=== PATIENT | male | born 1985 | race Native Hawaiian/Other Pacific Islander ===

== ENCOUNTER → 2018-01-18 11:29 | Outpatient (CLI) | payer BC, SELFPAY ==
--- NOTE | 2018-01-18 | DI.RAD.S_ITS ---
PROCEDURE: XR KNEE RT 3V INDICATIONS: RIGHT KNEE PAIN TECHNIQUE: 3 views of the knee were acquired. COMPARISON: None. FINDINGS: Bones: No fractures or dislocations. No suspicious bony lesions. Soft tissues: No joint effusion. No suspicious soft tissue calcifications. IMPRESSION: Normal knee Dictated by: Kevin Carcamo M.D. on 01/18/2018 at 12:17 Approved by: Kevin Carcamo M.D. on 01/18/2018 at 12:17
== END ==
PROVIDERS: Family Provider Family Medicine; PCP Family Medicine; Visit Provider Specialist
DX: M25.561 Pain in right knee (principal)
CPT/HCPCS: 73562

== ENCOUNTER → 2021-03-02 10:41 | Outpatient (CLI) | payer BC, SELFPAY ==
--- NOTE | 2021-03-02 11:51 | DI.US.S_ITS ---
PROCEDURE: US SCROTUM INDICATIONS: L testicular swelling, dull pain x4 weeks TECHNIQUE: Real-time scanning was performed of the scrotum and testicles, with image documentation. Color and pulse Doppler interrogation was performed of both testicles. COMPARISON: None. FINDINGS: Right: Testicle is normal in size at 4.4 x 2.2 x 2.6 cm, and homogenous in echotexture. Epididymis is normal in overall size and morphology. No hydrocele or varicoceles. Overlying scrotal skin is normal in thickness. Left: Testicle is enlarged measuring 6.8 x 3.9 x 5.8 cm, and heterogeneous in echotexture. There is a 3.7 x 1.4 x 4.0 centimeter solid mass with internal vascularity in the left testicle. Epididymis is normal in overall size and morphology. No hydrocele or varicoceles. Overlying scrotal skin is normal in thickness. Doppler: Color and pulse Doppler demonstrate normal and symmetric arterial flow in both testicles. IMPRESSION: 1. 3.7 x 1.4 x 4.0 centimeter left testicular mass highly suspicious for neoplastic process. Recommend urology consultation. 2. Right testicle is sonographically normal. Dictated by: Connie Knott MD, PhD on 03/02/2021 at 12:23 Approved by: Connie Knott MD, PhD on 03/02/2021 at 12:25
== END ==
PROVIDERS: PCP Nurse Practitioner Family; Referring Provider Physician Assistant; Visit Provider Physician Assistant
DX: N50.89 Other specified disorders of the male genital organs (principal)
CPT/HCPCS: 36415; 76870; 80053; 82105; 83615; 84702; 85025

== ENCOUNTER → 2021-03-02 16:01 | Outpatient (CLI) | payer BC, SELFPAY ==
[2021-03-02 16:35] LABS: Add Manual Diff / Slide Review NO; Basophils Absolute Auto 100 /uL (0-100); Basophils Percent Auto 1.1 % (0-2); Eosinophils Absolute Auto 100 /uL (0-450); Eosinophils Percent Auto 1.2 % (2-4); Hemoglobin 14.4 g/dL (13.5-17.5); Lymphocytes Absolute Auto 2700 /uL (1100-4500); Lymphocytes Percent Auto 31.3 % (25-40); Mean Corpuscular HGB Conc 33.6 % (30-36); Mean Corpuscular Hemoglobin 28.6 PG (26-34); Mean Corpuscular Volume 85.1 fL (80-100); Monocytes Absolute Auto 1100 /uL (0-900); Monocytes Percent Auto 12.5 % (3-14); Neutrophils Absolute Auto 4700 /uL (1500-7000); Neutrophils Percent Auto 53.9 % (50-75); Platelet Count 339 X10^3/uL (150-400); Red Blood Cell Count 5.05 X10^6/uL (4.5-5.9); White Blood Cell Count 8.8 X10^3/uL (4.5-11.0)
[2021-03-02 16:59] LABS: Alanine Aminotransferase 45 IU/L (<50); Albumin 4.8 g/dL (3.5-5.0); Albumin Globulin Ratio 1.3 (1.0-2.8); Alkaline Phosphatase 77 U/L (38-126); Aspartate Aminotransferase 38 IU/L (17-59); BUN Creatinine Ratio 14.5 (6-22); Bilirubin Total 0.3 mg/dL (0.2-1.3); Blood Urea Nitrogen 11 mg/dL (9-20); Calcium 9.5 mg/dL (8.4-10.2); Carbon Dioxide 28 mmol/L (22-32); Chloride 104 mmol/L (98-107); Estimated Glomerular Filt Rate > 60.0 mL/min (>60); Globulin 3.6 g/dL (1.7-4.1); Glucose 123 mg/dL (70-100); HEMOLYSIS < 15 (0-50); Lactate Dehydrogenase 555 U/L (313-618); Potassium 3.7 mmol/L (3.4-5.1); Sodium 141 mmol/L (137-145); Total Protein 8.4 g/dL (6.3-8.2)
[2021-03-02 17:16] LABS: HCG Quantitative /Beta subunit 31.8 mIU/mL (-2.40)
[2021-03-03 09:34] LABS: Alpha Fetoprotein 1.4 ng/mL (0.0-8.3)
== END ==
PROVIDERS: PCP Nurse Practitioner Family; Referring Provider Nurse Practitioner Family; Visit Provider Nurse Practitioner Family
DX: N50.89 Other specified disorders of the male genital organs (principal)
CPT/HCPCS: 36415; 80053; 82105; 83615; 84702; 85025

== ENCOUNTER → 2021-03-08 15:47 | Outpatient (CLI) | payer BC, SELFPAY | PROVIDERS: PCP Nurse Practitioner Family; Referring Provider Specialist; Visit Provider Specialist | DX: N45.1 Epididymitis (principal); N50.89 Other specified disorders of the male genital organs | CPT/HCPCS: 36415; 81002; 84702 ==

== ENCOUNTER → 2021-03-11 08:14 | Outpatient (CLI) | payer BC, SELFPAY ==
[2021-03-11 11:54] LABS: COVID19 -Nasal RAPID Negative (Negative)
== END ==
PROVIDERS: PCP Nurse Practitioner Family; Visit Provider Specialist
DX: Z20.822 Contact with and (suspected) exposure to COVID-19 (principal)
CPT/HCPCS: 87635

== ENCOUNTER → 2021-03-11 11:36 | Outpatient (CLI) | payer BC, SELFPAY ==
--- NOTE | 2021-03-11 11:38 | DI.CT.S_ITS ---
PROCEDURE: CT CHEST ABD PEL W CON INDICATIONS: left testicular mass TECHNIQUE: After the administration of oral and intravenous contrast, axial sections acquired from the supraclavicular neck to the pubic symphysis. Coronal and sagittal reformats were performed. For radiation dose reduction, the following was used: automated exposure control, adjustment of mA and/or kV according to patient size. COMPARISON: None. FINDINGS: CHEST: Lungs: 2 mm nodule seen in the right fissure on image 117/3, indeterminate. Pleura: No pleural effusions or pneumothorax. Heart: Heart size is normal. No pericardial effusion. Chest nodes: Normal. Thyroid gland: Negative. Aorta: Normal in size. Pulmonary arteries: Normal. Esophagus: Normal. ABDOMEN: Liver: Normal. Gallbladder: Negative. Bile ducts: Normal. Pancreas: Normal. Spleen: Normal. Adrenals: Normal. Kidneys and ureters: Normal. Stomach and duodenum: Normal. Bowel: Colonic diverticulosis is seen without evidence of acute complication. Other: No free fluid or air. Abdominal nodes: Multiple enlarged retroperitoneal lymph nodes, for example left periaortic lymph node on image 86/2 measures 2.0 x 1.5 cm. Confluent periaortic lymphadenopathy on image 78/2 measures 5.3 x 3.4 cm. Aorta and IVC: Normal in size. Ventral wall: Normal. PELVIS: Bladder: Normal. There is enlarged soft tissue mass involving the left scrotum presumably reflective of the patient's given left testicular mass. Inguinal region: No hernia. Pelvic nodes: Normal. Bones: No suspicious bony lesions. No vertebral body compression fractures. IMPRESSION: Multiple enlarged retroperitoneal lymph nodes as above, highly suspicious for metastatic disease. 2 mm nodule in the right fissure, technically indeterminate and recommend attention on subsequent studies. Enlarged soft tissue mass within the left scrotum. Dictated by: Hever Johnson M.D. on 03/11/2021 at 13:14 Approved by: Hever Johnson M.D. on 03/11/2021 at 13:21
== END ==
PROVIDERS: PCP Nurse Practitioner Family; Referring Provider Specialist; Visit Provider Specialist
DX: N50.89 Other specified disorders of the male genital organs (principal); N45.1 Epididymitis; R59.0 Localized enlarged lymph nodes; Z20.822 Contact with and (suspected) exposure to COVID-19
CPT/HCPCS: 71260; 74177; 87635; Q9967

== ENCOUNTER 2021-03-14 08:55 | Day surgery (SDC) | payer BC, SELFPAY ==
[2021-03-10 10:36] VITALS: BMI 42.7
[2021-03-14] VITALS (7 sets, daily range): BP systolic 123–136; BP diastolic 68–84; PULSE 71–96; RESP 13–18; TEMP 36.1–36.9; O2SAT 85–100; BMI 42.7
--- NOTE | 2021-03-14 | PATH_ITS ---
[facility] Accession Number: [id number] . 01 Material submitted: . testis - LEFT TESTICAL AND CORD . 01 Clinical history: . LEFT RADICAL ORCHIECTOMY . 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 Please see CAP Summary data below. . CAP Case Summary: (TESTIS: Radical Orchiectomy) Clincal: Pre-Orchiectomy serum tumor markers: Beta subunit of human chorionic gonadotropin elevation. Serum tumor markers: S1. . Specimen: Specimen laterality: Left. Tumor focality: Unifocal. Tumor size: Greatest dimension 6.5 cm. 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 Tumor extent: Limited to testis. Lymphovascular invasion: Positive for lymphovascular invasion. Margin status: All margins negative for tumor. Regional lymph node status: Not applicable (no regional lymph nodes submitted or found). Distant metastasis: Not applicable. . Pathologic stage classification (pTNM, AJCC 8th Edition): pT category: pT2: Tumor limited to testis with lymphovascular invasion. pN category: pN not assigned (no nodes submitted or found). . [facility] 03/18/2021 1317 Local . 02 Comment: As part of routine vice president quality improvement, Dr. Hill also reviewed this case and agrees with the interpretation. Dr. Hansen discussed preliminary results with Dr. Hay on 03/17/2021. . 02 Electronically signed: . Briseida Hansen MD, Pathologist NPI- [id number] . 01 Gross description: . The specimen is received in formalin, labeled left testicle and cord and consists of a 153-gram testicle and spermatic cord. The spermatic cord measures 8.0 cm in length by 2.0 cm in diameter and the testicle measures 8.0 x 6.0 x 5.5 cm. The specimen is inked blue and sectioned to reveal a 6.5 x 5.0 x 4.5 cm miranda-pink, focally hemorrhagic and necrotic mass which abuts the tunica albuginea and does not involve the tunica vaginalis. The mass does not involve the rete testis or epididymis. The epididymis measures 5.5 x 1.0 x 0.5 cm. Machine I Cutter sections are submitted. . A1: Spermatic cord margin, en face. A2: Machine I Cutter cross-sections of spermatic cord. A3: Mass in relation to tunica vaginalis, epididymis, and rete testis. A4-A7: Machine I Cutter mass. (EA:[id number]) /MRV 03/15/2021 1113 Local . 02 Microscopic: . Immunohistochemical stains were performed to characterize the cells of interest. All control stains showed appropriate reactivity. . CD30 - Positive in the high-grade tumor cells. CD117 - Negative in the high-grade tumor cells. Glypican 3 - Negative in tumor cells. D240 - Highlights lymphatic spaces containing tumor cells. . Interpretation: The immunophenotype of CD30 positive, CD117 negative cells is compatible with embryonal carcinoma. The seminomatous component is CD30 negative and CD117 positive. . * This test was developed and its performance characteristics determined by [facility]. It has not been cleared or approved by the U.S. Food and Drug Administration. The FDA has determined that such clearance or approval is not necessary. This test is used for clinical purposes. It should not be regarded as investigational or for research. . 02 Pathologist provided ICD-10: C62.92 . 02 CPT . 879876, M69994, [id number] Performed at: 01 [facility] [address], [place], [place] [id number] MD John Sanchez MD Phone: [phone] Performed at: 02 [facility] [place] [address] [place], [place] [id number] MD Briseida Hansen MD Phone: [phone]
[2021-03-14] MEDS: LACTATED RINGERS 1,000 ML 42 ML IV ×2 (09:17→12:08)
--- NOTE | 2021-03-14 10:33 | PM.PREOP ---
Pre-operative Note Interval Note History & Physical reviewed/Exam performed by Physician: Yes Changes to H&P: No
[2021-03-14] MEDS: ACETAMINOPHEN IV 1,000 MG/100 ML VIAL 400 MG IV (11:04)
[2021-03-14] MEDS: CEFAZOLIN 3 GM IN 0.9 % NACL 100 ML IV (11:15)
--- NOTE | 2021-03-14 11:52 | SUR.OPER ---
Supine on padded OR bed, head on pillow, arms secured on padded arm boards at <90 degrees abduction, legs uncrossed, safety belt at thigh, tape over blanket over lower legs.
[2021-03-14] MEDS: BUPIVACAINE LIPOSOME 266 MG/20 ML VIAL INJ (12:08)
[2021-03-14] MEDS: BUPIVACAINE 0.5% (PF) VIAL 30 ML INJ (12:10)
--- NOTE | 2021-03-14 13:26 | P.OP_ITS ---
Operative Date/Time/Diagnoses Date of procedure: 03/14/21 Time of procedure: 13:26 Pre-op diagnosis: Left testicular neoplasm Post-op diagnosis: same Procedure & Clinicians Procedure: 1. Left radical orchiectomy-complex modifier indicated for this case due to high patient BMI extending length the case greater than 50%. Same procedure as scheduled: Yes Indications: 1. Left testicular neoplasm. Surgeon: Lauri Hay Click Yes if Unassisted: Yes Anesthesia Type: General and Local (1.33% Exparel) Operative Notes Findings: Left cord visibly and palpably normal. The contents within the left tunica vaginalis or hard and the epididymis was not palpably discernible from the neoplastic testis. Closure Type: primary Specimen(s): none sent (Left testicle and cord) Estimated Blood Loss (mL): 10 Blood products transfused: none Procedure in detail: The patient was positioned supine and was administered general anesthesia. The lower abdomen, groin, and genitalia were then prepped and draped in sterile fashion. 0.25% Marcaine anesthetic was then used to infiltrate the skin and subcutaneous tissue over the left inguinal canal. Incision was then made and division of the abundant subcutaneous fat and Jax's fascia layer was undertaken using blunt and cautery technique. The rectus fascia was encountered and was incised parallel to its fibers opening the external ring. Using blunt technique, the cord was then mobilized from the left inguinal canal to level of the internal ring. The cord was then divided into 2 bundles and crossclamped proximally and distally. Cord was then transected distal to these hemostatic clamps. 0 silk suture was then used as a free tie on each bundle. Two 0 silk suture ligature was then applied to each bundle a circumferential and double fashion. The cord proximal to this at the internal ring was infiltrated with Exparel diluted 50%. Next, further mobilization of the cord distally and opening further the soft tissue of the external ring was accomplished. The left testis and cord were then delivered into the operative field in the left inguinal canal. The gubernacular was divided using blunt and cautery technique. The specimen was then handed off the field and submitted for routine gross and microscopic examination. The external oblique fascia was then closed using running 2-0 PDS the ileal inguinal nerve that had been identified begin the case was infiltrated with the local anesthetic as well. The rectus fascia was anesthetized with Exparel. Next Jax's fascia was closed using running 2-0 Monocryl again Jax's fascia was infiltrated with local anesthetic. Now the skin was reapproximated with a running subcuticular technique of 4-0 Monocryl the skin edges and regional block lateral to the incision was then performed with the remainder of the diluted Exparel. The skin surface was then cleaned and dried. A segment of Telfa gauze was then tailored appropriately to cover the incision and over this a large Op site was applied for a Bioclusive finish. Dry sterile fluffs were then applied to the left hemiscrotum and the patient was fitted with a large and leg supporter. The patient was then awakened, transferred to [facility], and transported to the recovery room in stable condition. Post-operative Condition: stable Disposition: PACU Plan for aftercare: Discharge home
== END 2021-03-14 14:12 | disposition home or self-care (01) ==
PROVIDERS: PCP Nurse Practitioner Family; Referring Provider Specialist; Visit Provider Specialist
PROC: (CPT 54530; principal; 2021-03-14 10:45)
DX: C62.92 Malignant neoplasm of left testis, unspecified whether descended or undescended (principal); F32.9 Major depressive disorder, single episode, unspecified
CPT/HCPCS: 54530; 82962; C9290; J0131; J0690; J1100; J2405; J2704; J3010

== ENCOUNTER → 2021-03-22 09:31 | Outpatient (CLI) | payer BC, SELFPAY ==
[2021-03-22 10:18] LABS: BUN Creatinine Ratio 18.2 (6-22); Blood Urea Nitrogen 12 mg/dL (9-20); Calcium 9.3 mg/dL (8.4-10.2); Carbon Dioxide 26 mmol/L (22-32); Chloride 106 mmol/L (98-107); Estimated Glomerular Filt Rate > 60.0 mL/min (>60); Glucose 107 mg/dL (70-100); HEMOLYSIS < 15 (0-50); Potassium 4.4 mmol/L (3.4-5.1); Sodium 141 mmol/L (137-145)
[2021-03-22 10:30] LABS: HCG Quantitative /Beta subunit 14.5 mIU/mL (-2.40)
== END ==
PROVIDERS: PCP Nurse Practitioner Family; Referring Provider Specialist; Visit Provider Specialist
DX: N45.1 Epididymitis (principal); N50.89 Other specified disorders of the male genital organs
CPT/HCPCS: 36415; 80048; 84702

== ENCOUNTER → 2021-03-29 14:01 | Outpatient (CLI) | payer BC, SELFPAY ==
[2021-03-29 15:59] LABS: COVID19 -Nasal RAPID Negative (Negative)
== END ==
PROVIDERS: PCP Nurse Practitioner Family; Visit Provider Specialist
DX: Z20.822 Contact with and (suspected) exposure to COVID-19 (principal); Z01.812 Encounter for preprocedural laboratory examination
CPT/HCPCS: 87635; C9803

== ENCOUNTER 2021-03-30 12:13 | Day surgery (SDC) | payer BC, SELFPAY ==
[2021-03-29 07:22] VITALS: BMI 42.1
[2021-03-30] VITALS (9 sets, daily range): BP systolic 103–126; BP diastolic 55–72; PULSE 79–99; RESP 16–21; TEMP 36.2–37; O2SAT 94–99; BMI 42.1
--- NOTE | 2021-03-30 | DI.RAD.S_ITS ---
PROCEDURE: XR CHEST 1V INDICATIONS: Post left prabhakar catheter placement. TECHNIQUE: One view of the chest was acquired. COMPARISON: None. FINDINGS: Surgical changes and devices: Interval placement of a left prabhakar catheter with tip projecting over the brachiocephalic SVC junction region. Lungs and pleura: Reduced lung volumes with prominence of the bronchovascular markings. No pleural effusions or pneumothorax. Mediastinum: Prominence of the cardiomediastinal silhouette, partially saturated by technique. Bones and chest wall: No suspicious bony lesions. Overlying soft tissues appear unremarkable. IMPRESSION: No appreciable pneumothorax. Dictated by: Silvestre Chatman M.D. on 03/30/2021 at 15:08 Approved by: Silvestre Chatman M.D. on 03/30/2021 at 15:15
[2021-03-30] MEDS: ACETAMINOPHEN 325 MG TABLET 975 MG PO (12:56)
[2021-03-30] MEDS: LACTATED RINGERS 1,000 ML 42 ML IV (12:56)
[2021-03-30] MEDS: GABAPENTIN 300 MG CAPSULE PO (12:57)
[2021-03-30] MEDS: SCOPOLAMINE 1 PATCH TOP (13:03)
--- NOTE | 2021-03-30 13:31 | PM.HP.1 ---
History of Present Illness History of Present Illness Chief complaint: PORT PLACEMENT Narrative: The patient is a gentleman about to start chemotherapy for testicular cancer. I was asked to place a Port-A-Cath. 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) Surgical History History of orchiectomy (03/14/21) Family & Social History Family History Mother Gout Grandfather Bladder cancer Social History: household members spouse Tobacco & Substance use: Smoking Status Never smoker alcohol intake current alcohol intake frequency holiday/special occasion Substance Use Type does not use Meds Home Medications and Allergies Home Medications Medication Instructions Recorded Confirmed Type venlafaxine 150 mg 150 mg PO DAILY 01/14/19 03/30/21 History capsule,extended release 24 hr Allergies Allergy/AdvReac Type Severity Reaction Status Date / Time Sulfa (Sulfonamide Allergy Rash Verified 03/30/21 12:33 Antibiotics) Review of Systems Review of Systems Narrative: Otherwise healthy. No cough asthma chest pain heart problems black or bloody bowel movements. No nodes in the neck or supraclavicular area. Exam Vital Signs (past 8 hours): - 03/30/21 12:35 Temperature 98.6 F Pulse Rate 79 Respiratory Rate 18 Blood Pressure 111/72 Pulse Oximetry 98 Oxygen Delivery Method Room Air Narrative Exam Narrative: Cooperative no apparent distress. There are no nodes in the neck supraclavicular areas. Trachea is midline mobile. Lungs are clear no rales or rhonchi. Heart regular rate and rhythm without murmur gallop. Abdomen is soft protuberant nontender without mass. No rashes on the chest wall. Assessment & Plan Assessment and plan (1) Germ cell tumor of left testicle: Status: Acute Assessment & Plan narrative: Will place a Port-A-Cath. I have discussed the operation with the patient. Risks of bleeding infection lung collapse DVT and pulmonary embolism all discussed with him. All questions were answered. He appears to understand wishes to proceed. Time Spent With Patient Critical Care time: I spent a total of [] minutes of critical care time on this patient's care today; this time is exclusive of procedural time.
--- NOTE | 2021-03-30 13:37 | PM.PREOP ---
Pre-operative Note COVID-19 COVID-19 status: Negative Result date/Date tested (Pos, Neg/Pending): 03/29/21 Interval Note History & Physical reviewed/Exam performed by Physician: Yes Changes to H&P: No
[2021-03-30] MEDS: CEFAZOLIN 1 GM VIAL 3 GM IV (13:50)
--- NOTE | 2021-03-30 14:01 | SUR.OPER ---
Supine on padded OR bed, head on gel donut. arms padded and tucked at sides, legs uncrossed, safety belt at thigh, tape over blanket over lower legs .shoulder roll in place. heels padded with gelpad.
[2021-03-30] MEDS: LIDOCAINE 1% 30 ML INJ (14:16)
[2021-03-30] MEDS: HEPARIN 5,000 UNIT, SODIUM CHLORIDE 0.9% 50 ML IV (14:21)
--- NOTE | 2021-03-30 14:47 | P.OP_ITS ---
Operative Date/Time/Diagnoses Date of procedure: 03/30/21 Time of procedure: 14:48 Pre-op diagnosis: Cancer of the testicle Post-op diagnosis: same Procedure & Clinicians Procedure: Placement of left subclavian Port-A-Cath Same procedure as scheduled: Yes Indications: Need for IV access for chemotherapy Surgeon: Sammy Becerril Click Yes if Unassisted: Yes Anesthesia Type: General Operative Notes Findings: Tip in the proximal SVC. Closure Type: primary Specimen(s): none sent Prosthetic devices, grafts, tissues, transplants, or devices: Regular Port-A-Cath Estimated Blood Loss (mL): 5 Blood products transfused: none Procedure in detail: The patient was placed supine on the operating room table and underwent general LMA anesthesia. A roll was placed between the patient's shoulders. She was prepped and draped in the usual fashion. Local anesthetic was infiltrated beneath the left clavicle in a field block fashion. A transverse incision was made and a pocket created inferior to the incision. I had difficulty actually getting under the clavicle I believe due to his size. However once I did Needle was inserted on 1st attempt into the subclavian vein. A guidewire was passed through it and the needle removed. The guidewire appeared to be in good position initially The port and catheter were put together and the port inserted into the pocket. The catheter was tapered to appropriate length. The wire had displaced into the right subclavian and therefore a manipulated it back into the vena cava. Then the Dilator and introducer were passed over the guidewire. This was done with fluoroscopic visualization. The dilator and guidewire were removed leaving the introducer in place. The catheter was passed through the introducer which was then peeled away. The tip of the catheter was noted to be proximal SVC. There was no evidence of a pneumothorax on fluoroscopy. The port was aspirated and flushed with heparinized saline. The port was secured to the chest wall with interrupt ed 2 0 silk suture. The subcu was closed with interrupted 3 0 Vicryl. The skin was closed with a running 4 0 Vicryl subcuticular stitch, Mastisol and Steri- Strips. Dressing was applied and the patient was taken to the recovery room in good condition. X-ray postprocedure showed the tip in the junction of the non min an SVC and no evidence of pneumothorax. Complications: none Post-operative Condition: stable Disposition: PACU
--- NOTE | 2021-03-30 14:54 | SUR.PHASEI ---
Received to PACU after general anesthesia. Airway patent, self maintained. Report from Dr Uriarte and SOFIA Wright. PCXR done.
--- NOTE | 2021-03-30 15:42 | SUR.PHASEI ---
1507 - Dr Becerril at bedside. Port-a-cath flushed and redressed by Dr Becerril.
== END 2021-03-30 16:01 | disposition home or self-care (01) ==
PROVIDERS: PCP Nurse Practitioner Family; Referring Provider Specialist; Visit Provider Specialist
PROC: (CPT 36561; principal; 2021-03-30 13:15)
DX: C62.92 Malignant neoplasm of left testis, unspecified whether descended or undescended (principal); E66.01 Morbid (severe) obesity due to excess calories; Z68.41 Body mass index [BMI] 40.0-44.9, adult; F41.9 Anxiety disorder, unspecified; F32.9 Major depressive disorder, single episode, unspecified
CPT/HCPCS: 36561; 71045; 76000; C1788; J0690; J1100; J1644; J2250; J2405; J2704

== ENCOUNTER → 2021-04-07 07:05 | Outpatient (CLI) | payer BC, SELFPAY ==
[2021-04-07 07:58] LABS: COVID19 -Nasal RAPID Negative (Negative)
== END ==
PROVIDERS: PCP Nurse Practitioner Family; Referring Provider Internal Medicine; Visit Provider Internal Medicine
DX: Z20.822 Contact with and (suspected) exposure to COVID-19 (principal)
CPT/HCPCS: 87635; C9803

== ENCOUNTER → 2021-04-08 07:01 | Outpatient (CLI) | payer BC, SELFPAY ==
--- NOTE | 2021-04-15 11:17 | PM.PFT.1 ---
Pulmonary Function Test Referral & Results Date Patient Seen: 04/08/21 Requesting provider: Sekou Baez Results: The spirometry demonstrates an FVC of 4.21 L which is 83% of predicted. The FEV1 was measured at 3.73 L which is 90% of predicted. The FEV1/FVC ratio was 89 which is 109% of predicted. Following the administration of bronchodilator there was no significant change. Lung volumes show an SVC of 4.4 L which is 91% of predicted. The diffusing capacity was measured at 32.92 which is 111% of predicted. The maximum voluntary ventilation was reduced Interpretation: This study demonstrates probably normal pulmonary function however maximum voluntary ventilation was reduced which in the absence of any spirometric abnormality suggest the presence of neuromuscular disease Clinical correlation suggested
== END ==
PROVIDERS: PCP Nurse Practitioner Family; Referring Provider Internal Medicine Hematology & Oncology; Visit Provider Internal Medicine Hematology & Oncology
DX: C62.92 Malignant neoplasm of left testis, unspecified whether descended or undescended (principal); J98.8 Other specified respiratory disorders
CPT/HCPCS: 94060; 94726; 94729

== ENCOUNTER 2021-04-11 10:58 | Emergency (ER) | payer BC, SELFPAY ==
[2021-04-11] VITALS (8 sets, daily range): BP systolic 121–130; BP diastolic 60–75; PULSE 77–98; RESP 17–25; TEMP 36.7; O2SAT 93–97; BMI 41.8
--- NOTE | 2021-04-11 11:07 | DI.CT.S_ITS ---
PROCEDURE: CT HEAD/BRAIN WO CON INDICATIONS: synocpe, h/o testicular CA TECHNIQUE: Noncontrast 4.5 mm thick angled axial sections acquired from the foramen magnum to the vertex, with coronal and sagittal reformats. For radiation dose reduction, the following was used: automated exposure control, adjustment of mA and/or kV according to patient size. COMPARISON: None. FINDINGS: Image quality: Excellent. CSF spaces: Basal cisterns are patent. No extra-axial fluid collections. Ventricles are normal in size and shape. Brain: No midline shift. No intracranial masses or hemorrhage. Ayon-white matter interface is normal. Skull and face: Calvarium and visualized facial bones are intact, without suspicious lesions. Sinuses: Visualized sinuses and mastoids are clear. IMPRESSION: No acute intracranial disease process. Dictated by: Connie Knott MD, PhD on 04/11/2021 at 11:37 Approved by: Connie Knott MD, PhD on 04/11/2021 at 11:38
--- NOTE | 2021-04-11 11:08 | DI.RAD.S_ITS ---
PROCEDURE: XR CHEST 1V INDICATIONS: chest pain TECHNIQUE: One view of the chest was acquired. COMPARISON: [facility], CR, XR CHEST 1V, 03/30/2021, 14:48. FINDINGS: Surgical changes and devices: A left chest port is again seen with catheter tip projecting over the confluence of the innominate veins. Lungs and pleura: Lungs are clear. No pleural effusions or pneumothorax. Mediastinum: Mediastinal contours appear normal. Heart size is normal. Bones and chest wall: No suspicious bony lesions. Overlying soft tissues appear unremarkable. IMPRESSION: No acute cardiopulmonary abnormality. Dictated by: Gerard Pradhan M.D. on 04/11/2021 at 11:28 Approved by: Gerard Pradhan M.D. on 04/11/2021 at 11:33
[2021-04-11 11:39] LABS: Add Manual Diff / Slide Review NO; Basophils Absolute Auto 100 /uL (0-100); Basophils Percent Auto 0.6 % (0-2); Eosinophils Absolute Auto 100 /uL (0-450); Eosinophils Percent Auto 0.9 % (2-4); Hematocrit 38.7 % (41-53); Hemoglobin 13.1 g/dL (13.5-17.5); Lymphocytes Absolute Auto 1200 /uL (1100-4500); Lymphocytes Percent Auto 14.2 % (25-40); Mean Corpuscular HGB Conc 33.7 % (30-36); Mean Corpuscular Hemoglobin 28.3 PG (26-34); Mean Corpuscular Volume 83.8 fL (80-100); Monocytes Absolute Auto 200 /uL (0-900); Monocytes Percent Auto 2.7 % (3-14); Neutrophils Absolute Auto 6900 /uL (1500-7000); Neutrophils Percent Auto 81.6 % (50-75); Platelet Count 236 X10^3/uL (150-400); Red Blood Cell Count 4.62 X10^6/uL (4.5-5.9); Red Cell Distribution Width 13.7 % (11.6-14.8); White Blood Cell Count 8.5 X10^3/uL (4.5-11.0)
[2021-04-11 11:55] LABS: Alanine Aminotransferase 52 IU/L (<50); Albumin 4.1 g/dL (3.5-5.0); Albumin Globulin Ratio 1.2 (1.0-2.8); Alkaline Phosphatase 89 U/L (38-126); Aspartate Aminotransferase 38 IU/L (17-59); BUN Creatinine Ratio 17.3 (6-22); Bilirubin Total 0.3 mg/dL (0.2-1.3); Blood Urea Nitrogen 13 mg/dL (9-20); Calcium 8.6 mg/dL (8.4-10.2); Carbon Dioxide 27 mmol/L (22-32); Chloride 105 mmol/L (98-107); Creatine Kinase 41 U/L (55-170); Estimated Glomerular Filt Rate > 60.0 mL/min (>60); Globulin 3.4 g/dL (1.7-4.1); Glucose 122 mg/dL (70-100); HEMOLYSIS < 15 (0-50); Lipase 409 U/L (23-300); Potassium 3.7 mmol/L (3.4-5.1); Sodium 139 mmol/L (137-145); Total Protein 7.5 g/dL (6.3-8.2)
[2021-04-11 12:06] LABS: Troponin I < 0.012 ng/mL (0.01-0.034)
--- NOTE | 2021-04-11 12:17 | DI.MRI.S_ITS ---
PROCEDURE: MR HEAD/BRAIN WO/W CON INDICATIONS: testicular cancer and syncope TECHNIQUE: Noncontrast axial T1 spin echo, axial T2 fast spin echo, sagittal and axial FLAIR, coronal T2 fast spin echo, axial gradient echo, axial diffusion and ADC through the brain. After the administration of contrast, axial and coronal 3D VIBE or T1 spin echo with fat saturation through the brain. COMPARISON: [facility], CT, CT HEAD/BRAIN WO CON, 04/11/2021, 11:34. FINDINGS: Image quality: Excellent. CSF Spaces: Basal cisterns are patent. No extra-axial fluid collections. Ventricles are normal in size and shape. Brain: No midline shift. No intracranial bleeds or masses. No abnormal intracranial enhancement. The brainstem appears normal. Diffusion-weighted images demonstrate no acute ischemic insults. No chronic ischemic insults. Normal intravascular flow voids are present. Skull and face: Calvarial marrow is normal in signal. Orbits appear normal. Sinuses: Sinuses and mastoids appear clear. IMPRESSION: No masses or abnormal enhancement can be seen. No findings of acute or subacute infarction can be seen. No brain edema is seen. Dictated by: Kj Marroquin M.D. on 04/11/2021 at 12:44 Approved by: Kj Marroquin M.D. on 04/11/2021 at 12:45
--- NOTE | 2021-04-11 12:20 | PC.NURSE ---
Pt at oncology clinic, received meds prior to chemo infusion, stood up to go to bathroom and had syncopal episode.
--- NOTE | 2021-04-11 13:08 | ED.SYNCOPE ---
HPI - Syncope General Chief Complaint: Syncope Stated Complaint: syncope Time Seen by Provider: 04/11/21 11:33 Source: patient Mode of arrival: EMS Limitations: no limitations History of Present Illness HPI narrative: Patient is a 35-year-old male who has history of testicular cancer. He was in the oncology infusion clinic getting premedicated for his chemo therapy he stood up to use the restroom he got extremely dizzy lightheaded flushed his head hit a door he slid down the door and had a brief episode of loss of consciousness only a few seconds. He is actually complaining of right ankle pain but is overall feeling significantly better. He had not yet received chemotherapy only the premedications. He denies any chest pain palpitations dizziness lightheadedness no neck pain. Oncology called if possible to get an MRI of brain. Related Data Home Medications Medication Instructions Recorded Confirmed venlafaxine 150 mg 150 mg PO DAILY 01/14/19 03/30/21 capsule,extended release 24 hr Previous Rx's Medication Instructions Recorded oxycodone 5 mg tablet 5 mg PO Q4H PRN #10 tab 03/30/21 lorazepam 0.5 mg tablet 0.5 mg PO TID PRN #60 tab 04/11/21 ondansetron 4 mg disintegrating 4 mg PO Q6H #60 tab 04/11/21 tablet prochlorperazine maleate 10 mg 10 mg PO Q6H PRN #60 tab 04/11/21 tablet Allergies Allergy/AdvReac Type Severity Reaction Status Date / Time Sulfa (Sulfonamide Allergy Rash Verified 03/30/21 12:33 Antibiotics) Review of Systems Review of Systems Narrative: GENERAL: Denies chills, fatigue, malaise, fever, sweats, travel HEENT: Denies sinus pain, ear pain, sore throat, difficulty swallowing, neck pain RESPIRATORY: Denies dyspnea, cough, wheezing, hemoptysis, sputum. CARDIOVASCULAR: Denies chest pain, palpitations, orthopnea, edema GASTROINTESTINAL: Denies nausea, vomiting, abdominal pain, diarrhea, constipation, melena. : Denies dysuria, frequency, incontinence, hematuria, urinary retention, flank pain. MUSCULOSKELETAL: Denies weakness, joint pain, or bony pain SKIN: No rash, no erythema, no pruritus NEUROLOGIC: See HPI PSYCHIATRIC: No concerning psychosocial issues. 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) Nodule of right lung (02/2021) Surgical History History of orchiectomy (03/14/21) Family History Mother Gout Grandfather Bladder cancer Social History marital status: number of children: 0 household members: spouse Smoking Status: Never smoker second hand exposure: Yes (Socially) alcohol intake: current substance use type: does not use caffeine: Yes Smoking Status: Never smoker alcohol intake frequency: holidays/special occasions only Substance Use Type: does not use Exam Initial Vital Signs Initial Vital Signs: Vital Signs Pulse Rate 77 04/11/21 11:00 Pulse Oximetry 97 04/11/21 11:00 GENERAL: Alert well-appearing 35-year-old in no acute distress. HEENT: Head atraumatic,EOMI, pupils reactive, face symmetric, moist mucous membranes NECK: Supple no vertebral tenderness step-offs CARDIOVASCULAR: Regular rate and rhythm without murmurs, rubs or gallops. RESPIRATORY: Breath sounds equal bilaterally, no wheezes rales or rhonchi. ABDOMEN: Soft, nontender. Normoactive bowel sounds all 4 quadrants. No guarding or rebound. EXTREMITIES: Normal range of motion, no clubbing or edema. Neurovascularly intact NEUROLOGICAL: Alert and oriented x4.Normal gait and speech. Cranial nerves II through XII grossly intact. Good [id number], good [id number], strength equal bilaterally, no dysarthria or aphasia, sensation in tact to soft touch bilaterally, no visual changes, no facial droop SKIN: Warm, dry, no laceration, no petechiae, no rashes or lesions. Scores NIH Stroke Scale Level of Conciousness: Alert, keenly responsive Ask month/age: Answers both questions correctly. Open/close eyes, close hand: Performs both tasks correctly Best gaze horizontal: Normal Visual poole: No visual loss Facial palsy: Normal symetrical movement Left arm drift: No drift for full 10 sec Right arm drift: No drift for full 10 sec Left leg drift: No drift for full 5 sec Right leg drift: No drift for full 5 sec Limb ataxia: Absent Sensory on face/arms/legs: Normal, no sensory loss Best language: No aphasia, normal Dysarthria: Normal Extinction or inattention: No abnormality Total NIH Stroke scale score: 0 Course Orders Ordered: ED Orders 04/11/21 11:07 CT head/brain wo con Stat 04/11/21 11:08 XR chest 1V Stat EKG-12 Lead Stat 04/11/21 11:25 Complete Blood Count AUTO DIFF Stat Comprehensive Metabolic Panel Stat Lipase Stat Troponin & CK Cardiac Panel Stat 04/11/21 12:17 MR head/brain wo/w con Stat Vital Signs Vital signs: Vital Signs - 8 hr 04/11/21 11:30 04/11/21 12:00 04/11/21 12:24 Pulse Rate 83 79 92 H Respiratory Rate 23 22 25 H Blood Pressure 121/73 125/66 Pulse Oximetry 97 93 95 04/11/21 12:30 04/11/21 14:15 Pulse Rate 98 H 91 H Respiratory Rate 17 Blood Pressure 124/64 121/60 Pulse Oximetry 97 96 MDM - Syncope Lab Data Result diagrams: 04/11/21 11:25 04/11/21 11:25 Labs: Lab Results 04/11/21 04/11/21 Range/Units 11:25 11:25 WBC 8.5 (4.5-11.0) X10^3/uL RBC 4.62 (4.5-5.9) X10^6/uL Hgb 13.1 L (13.5-17.5) g/dL Hct 38.7 L (41-53) % MCV 83.8 (80-100) fL MCH 28.3 (26-34) PG MCHC 33.7 (30-36) % RDW 13.7 (11.6-14.8) % Plt Count 236 (150-400) X10^3/uL Neut % (Auto) 81.6 H (50-75) % Lymph % (Auto) 14.2 L (25-40) % [place] % (Auto) 2.7 L (3-14) % Eos % (Auto) 0.9 L (2-4) % Baso % (Auto) 0.6 (0-2) % Neut # (Auto) 6900 (7628-2888) /uL Lymph # (Auto) 1200 (3503-4985) /uL [place] # (Auto) 200 (0-900) /uL Eos # (Auto) 100 (0-450) /uL Baso # (Auto) 100 (0-100) /uL Sodium 139 (137-145) mmol/L Potassium 3.7 (3.4-5.1) mmol/L Chloride 105 (98-107) mmol/L Carbon Dioxide 27 (22-32) mmol/L BUN 13 (9-20) mg/dL Creatinine 0.75 (0.66-1.25) mg/dL Estimated GFR > 60.0 (>60) mL/min BUN/Creatinine Ratio 17.3 (6-22) Glucose 122 H (70-100) mg/dL Calcium 8.6 (8.4-10.2) mg/dL Total Bilirubin 0.3 (0.2-1.3) mg/dL AST 38 (17-59) IU/L ALT 52 H (<50) IU/L Alkaline Phosphatase 89 (38-126) U/L Total Creatine Kinase 41 L (55-170) U/L CK-MB (CK-2) TNP CK-MB (CK-2) Rel Index TNP Troponin I < 0.012 (0.01-0.034) ng/mL Total Protein 7.5 (6.3-8.2) g/dL Albumin 4.1 (3.5-5.0) g/dL Globulin 3.4 (1.7-4.1) g/dL Albumin/Globulin Ratio 1.2 (1.0-2.8) Lipase 409 H (23-300) U/L Urine Dip Bedside Urine Glucose Negative Bedside Urine Bilirubin - Negative Bedside Urine Ketone - Negative Urine Specific Creighton 1.020 Bedside Urine Occult Blood - Negative Bedside Urine pH 6.0 Bedside Urine Protein + 30 Bedside Urine Urobilinogen - Negative Bedside Urine Nitrite - Negative Bedside Urine Leukocytes - Negative Esterase Imaging Data CT scan - head: Radiologist's Impression: PROCEDURE:? CT HEAD/BRAIN WO CON ? INDICATIONS:? synocpe, h/o testicular CA ? TECHNIQUE:? Noncontrast 4.5 mm thick angled axial sections acquired from the foramen magnum to the vertex, with coronal and sagittal reformats.? For radiation dose reduction, the following was used:? automated exposure control, adjustment of mA and/or kV according to patient size.? ? COMPARISON:? None. ? FINDINGS:? Image quality:? Excellent.? ? CSF spaces:? Basal cisterns are patent.? No extra-axial fluid collections.? Ventricles are normal in size and shape.? ? Brain:? No midline shift.? No intracranial masses or hemorrhage.? Ayon-white matter interface is normal.? ? Skull and face:? Calvarium and visualized facial bones are intact, without suspicious lesions.? ? Sinuses:? Visualized sinuses and mastoids are clear.? ? IMPRESSION:? No acute intracranial disease process. ? ? Dictated by: Connie Knott MD, PhD on 04/11/2021 at 11:37 ? ? Chest x-ray: Radiologist's Impression: PROCEDURE:? XR CHEST 1V ? INDICATIONS:? chest pain ? TECHNIQUE:? One view of the chest was acquired.? ? COMPARISON:? [facility], CR, XR CHEST 1V, 03/30/2021, 14:48. ? FINDINGS:? ? Surgical changes and devices:? A left chest port is again seen with catheter tip projecting over the confluence of the innominate veins. ? Lungs and pleura:? Lungs are clear.? No pleural effusions or pneumothorax.? ? Mediastinum:? Mediastinal contours appear normal.? Heart size is normal.? ? Bones and chest wall:? No suspicious bony lesions.? Overlying soft tissues appear unremarkable.? ? IMPRESSION:? No acute cardiopulmonary abnormality. ? ? Dictated by: Gerard Pradhan M.D. on 04/11/2021 at 11:28 ? ? MR Brain: Radiologist's Impression: PROCEDURE:? MR HEAD/BRAIN WO/W CON ? INDICATIONS:? testicular cancer and syncope ? TECHNIQUE:? Noncontrast axial T1 spin echo, axial T2 fast spin echo, sagittal and axial FLAIR, coronal T2 fast spin echo, axial gradient echo, axial diffusion and ADC through the brain.? After the administration of contrast, axial and coronal 3D VIBE or T1 spin echo with fat saturation through the brain.? ? COMPARISON:? [facility], CT, CT HEAD/BRAIN WO CON, 04/11/2021, 11:34. ? FINDINGS:? Image quality:? Excellent.? ? CSF Spaces:? Basal cisterns are patent.? No extra-axial fluid collections.? Ventricles are normal in size and shape.? ? Brain:? No midline shift.? No intracranial bleeds or masses.? No abnormal intracranial enhancement.? The brainstem appears normal.? Diffusion-weighted images demonstrate no acute ischemic insults.? No chronic ischemic insults.? Normal intravascular flow voids are present.? ? Skull and face:? Calvarial marrow is normal in signal.? Orbits appear normal.? ? Sinuses:? Sinuses and mastoids appear clear.? ? ? IMPRESSION:? No masses or abnormal enhancement can be seen. ? No findings of acute or subacute infarction can be seen.? ? No brain edema is seen.? ? Dictated by: Kj Marroquin M.D. on 04/11/2021 at 12:44 ? ? ECG Data Interpretation: Sinus rhythm rate 78 MI interval 158 QRS [address] changes no T-wave inversion MDM Narrative Medical decision making narrative: The patient is overall well appearing. 35-year-old young male who received medication just before chemotherapy and then had a syncopal episode. He thinks he stood up too fast he has had pre drum all symptoms. He has no neurologic deficits. Workup today does not show any evidence of metastasis to the brain. He is not having any shortness of breath is or tachycardia unlikely to be PE. At this time patient is overall feeling well in will follow-up with Oncology. Discharge Plan Departure Patient Disposition: Home Clinical Impression: Syncope, vasovagal Instructions: DI for Syncope in Adults (Fainting) Activity Restrictions/Additional Instructions: *You have been diagnosed with syncopal episode *What to do: At this time he likely passed out secondary to medications. Her blood work CT scan and MRI are overall reassuring. Please follow-up with Oncology *Continue to take medications as directed *Follow up with your primary care provider in 2-3 days *Return to ER if you should have increasing weakness, chest pain dizziness recurrent episodes of passing out or any new, worsening or concerning symptoms Prescriptions: No Action venlafaxine 150 mg capsule,extended release 24hr 150 mg PO DAILY RF: 0 ondansetron 4 mg Tablet,Disintegrating 4 mg PO Q6H Qty: 60 RF: 2 prochlorperazine maleate 10 mg Tablet 10 mg PO Q6H PRN (Reason: nausea , chemotherapy) Qty: 60 RF: 2 lorazepam 0.5 mg Tablet 0.5 mg PO TID PRN (Reason: Nausea) Qty: 60 RF: 0 oxycodone 5 mg tablet 5 mg PO Q4H PRN (Reason: pain) Qty: 10 RF: 0 Referrals: Sekou Baez ARNP [Primary Care Provider] -
--- NOTE | 2021-04-11 15:40 | ONC.MSW ---
Description: FMLA Activity: Completed a new set of FMLA forms for pt, per his request. Provided it for him while he was in clinic.
== END 2021-04-11 14:24 | disposition home or self-care (01) ==
PROVIDERS: Emergency Provider Emergency Medicine; PCP Nurse Practitioner Family
DX: R55 Syncope and collapse (principal); R07.9 Chest pain, unspecified; C62.90 Malignant neoplasm of unspecified testis, unspecified whether descended or undescended
CPT/HCPCS: 36415; 70450; 70553; 71045; 80053; 81003; 82550; 83690; 84484; 85025; 93005; 93010; 99284; 99285; A9579; J1642

== ENCOUNTER → 2021-04-21 14:37 | Outpatient (CLI) | payer BC, SELFPAY ==
[2021-04-21 14:57] LABS: Hemoglobin A1C% w Est Avg Glu 6.2 % (4.0-6.0)
== END ==
PROVIDERS: PCP Nurse Practitioner Family; Referring Provider Nurse Practitioner Family; Visit Provider Nurse Practitioner Family
DX: R73.9 Hyperglycemia, unspecified (principal)
CPT/HCPCS: 83036

== ENCOUNTER → 2021-06-28 11:16 | Outpatient (CLI) | payer BC, SELFPAY ==
--- NOTE | 2021-06-28 11:18 | DI.CT.S_ITS ---
PROCEDURE: CT CHEST ABD PEL W CON INDICATIONS: testicular cancer TECHNIQUE: After the administration of oral and intravenous contrast, axial sections acquired from the supraclavicular neck to the pubic symphysis. Coronal and sagittal reformats were performed. For radiation dose reduction, the following was used: automated exposure control, adjustment of mA and/or kV according to patient size. COMPARISON: [facility], CT, CT CHEST ABD PEL W CON, 03/11/2021, 12:49. FINDINGS: Image quality: Excellent. CHEST: Lower Neck: No enlarged lymph nodes. Thyroid: Unremarkable as visualized Axillae: No enlarged lymph nodes. Chest Wall: Unremarkable. Lungs and Airways: Stable 2 mm pulmonary nodule, either in the minor fissure of the right lung or in the anterior inferior aspect of the right upper lobe. No other pulmonary nodules identified. Pleura: No pneumothorax or pleural effusions. Heart: Heart size is normal. No pericardial effusion. Thoracic Vessels: The aorta and pulmonary arteries demonstrate normal size. Mediastinum and Patricia: No enlarged lymph nodes. Esophagus: No wall thickening. No hiatal hernia. ABDOMEN: Liver: Unremarkable. Gallbladder: Unremarkable. Biliary ducts: Unremarkable. Pancreas: Unremarkable. Spleen: Unremarkable. Adrenal Glands: Unremarkable. Kidneys and Ureters: Unremarkable. Stomach and Bowel: Stomach, small bowel loops, and colon are unremarkable. Peritoneum: No abnormal intraperitoneal fluid. No free air. Ventral Wall: No hernia. Abdominal Nodes: Near complete resolution of previously bulky retroperitoneal adenopathy. This is well seen when comparing previous image 78/2 to current image 81/2. There is a residual left periaortic lymph node measuring 1.5 cm. The other lymph nodes are nearly completely resolved. The particular measured left periaortic lymph node previously measured 3.4 cm. Vessels: Aorta and inferior vena cava are normal in size. PELVIS: Pelvic Organs: Unremarkable. Bladder: Unremarkable. Pelvic Nodes: No enlarged lymph nodes. Miscellaneous: No inguinal hernias are seen. Remote left orchiectomy. Bones: Unremarkable. IMPRESSION: 1. Stable 2 mm fissural nodule or nodule immediately adjacent to the minor fissure of the right lung. This is most likely a benign pulmonary nodule. No new or increasing pulmonary nodules. No other suspicious findings in the chest. 2. Marked interval improvement in retroperitoneal adenopathy, with a single borderline sized lymph node remaining in other tiny residua of previous lymph nodes seen. 3. No other findings of malignancy in the abdomen and pelvis. Dictated by: Ceferino Christianson M.D. on 06/28/2021 at 14:18 Approved by: Ceferino Christianson M.D. on 06/28/2021 at 14:26
== END ==
PROVIDERS: PCP Nurse Practitioner Family; Referring Provider Internal Medicine Hematology & Oncology; Visit Provider Internal Medicine Hematology & Oncology
DX: C62.92 Malignant neoplasm of left testis, unspecified whether descended or undescended (principal); R91.1 Solitary pulmonary nodule
CPT/HCPCS: 71260; 74177

== ENCOUNTER → 2021-07-25 10:58 | Outpatient (CLI) | payer BC, SELFPAY ==
[2021-07-25 14:43] LABS: COVID-19 CEPHEID PCR (VTM/NP) Negative (Negative)
== END ==
PROVIDERS: PCP Nurse Practitioner Family; Referring Provider Family Medicine Sleep Medicine; Visit Provider Family Medicine Sleep Medicine
DX: Z20.822 Contact with and (suspected) exposure to COVID-19 (principal)
CPT/HCPCS: C9803; U0003

== ENCOUNTER → 2021-08-19 11:04 | Outpatient (CLI) | payer BC, SELFPAY ==
--- NOTE | 2021-08-19 12:08 | DI.CT.S_ITS ---
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 Coronal and sagittal reformats were performed. For radiation dose reduction, the following was used: automated exposure control, adjustment of mA and/or kV according to patient size. COMPARISON:[facility], CT, CT CHEST ABD PEL W CON, 06/28/2021, 12:05. FINDINGS: Image quality: Excellent. CHEST: Lower Neck: No enlarged lymph nodes. Thyroid: Within normal limits. Axillae: No enlarged lymph nodes. Chest Wall: Unremarkable. Lungs and Airways: No consolidation or suspicious nodules. Pleura: No pneumothorax or pleural effusions. Heart: Heart size is normal. No pericardial effusion. Thoracic Vessels: The aorta and pulmonary arteries demonstrate normal size. A left prabhakar catheter is seen with tip in the distal brachiocephalic region. Mediastinum and Patricia: No enlarged lymph nodes. Faint soft tissue density in the superior mediastinum, which may reflect rebound thymus. Esophagus: No wall thickening. No hiatal hernia. ABDOMEN: Liver: Normal contour. Hepatic steatosis. Gallbladder: Unremarkable. Biliary ducts: Unremarkable. Pancreas: Unremarkable. Spleen: Unremarkable. Adrenal Glands: Unremarkable. Kidneys and Ureters: Unremarkable. Stomach and Bowel: No evidence of intestinal obstruction or inflammatory change. Normal appearance of the appendix. Peritoneum: No abnormal intraperitoneal fluid. No free air. Ventral Wall: Trace fat containing periumbilical hernia. Abdominal Nodes: Redemonstrated shotty mesenteric lymphadenopathy, grossly unchanged. Left periaortic node: August 19, 2021: 1.5 x 1.2 cm (2-85) June 28, 2021: 1.5 x 1.3 cm (2-80) Vessels: Aorta and inferior vena cava are normal in size. PELVIS: Pelvic Organs: Unremarkable. Bladder: Unremarkable. Pelvic Nodes: No enlarged lymph nodes. Miscellaneous: No inguinal hernias are seen. Infiltrative change in the left inguinal region, which may reflect postsurgical change. Bones: No significant abnormality. IMPRESSION: 1. No significant intrathoracic abnormality. 2. Persistent shotty retroperitoneal lymphadenopathy, grossly unchanged. Dictated by: Silvestre Chatman M.D. on 08/19/2021 at 14:17 Approved by: Silvestre Chatman M.D. on 08/19/2021 at 14:30
== END ==
PROVIDERS: PCP Nurse Practitioner Family; Referring Provider Urology; Visit Provider Urology
DX: C62.12 Malignant neoplasm of descended left testis (principal); R59.0 Localized enlarged lymph nodes; Z90.79 Acquired absence of other genital organ(s)
CPT/HCPCS: 71260; 74177

== ENCOUNTER → 2021-08-20 09:34 | Outpatient (CLI) | payer BC, SELFPAY ==
[2021-08-20 10:50] LABS: Lactate Dehydrogenase 371 U/L (313-618)
[2021-08-20 11:08] LABS: HCG Quantitative /Beta subunit < 2.4 mIU/mL (-2.40)
== END ==
PROVIDERS: PCP Nurse Practitioner Family; Referring Provider Urology; Visit Provider Urology
DX: R59.0 Localized enlarged lymph nodes (principal); C62.12 Malignant neoplasm of descended left testis; Z90.79 Acquired absence of other genital organ(s)
CPT/HCPCS: 36415; 82105; 83615; 84702

== ENCOUNTER → 2021-08-26 12:54 | Outpatient (CLI) | payer BC, SELFPAY ==
[2021-08-26 14:01] LABS: Add Manual Diff / Slide Review NO; Basophils Absolute Auto 0 /uL (0-100); Basophils Percent Auto 0.6 % (0-2); Eosinophils Absolute Auto 100 /uL (0-450); Eosinophils Percent Auto 2.5 % (2-4); Hematocrit 38.3 % (41-53); Hemoglobin 12.9 g/dL (13.5-17.5); Lymphocytes Absolute Auto 1900 /uL (1100-4500); Lymphocytes Percent Auto 32.8 % (25-40); Mean Corpuscular HGB Conc 33.6 % (30-36); Mean Corpuscular Hemoglobin 30.2 PG (26-34); Mean Corpuscular Volume 89.9 fL (80-100); Monocytes Absolute Auto 300 /uL (0-900); Monocytes Percent Auto 5.1 % (3-14); Neutrophils Absolute Auto 3400 /uL (1500-7000); Platelet Count 287 X10^3/uL (150-400); Red Blood Cell Count 4.26 X10^6/uL (4.5-5.9); White Blood Cell Count 5.8 X10^3/uL (4.5-11.0)
[2021-08-26 14:07] LABS: Hemoglobin A1C% w Est Avg Glu 5.2 % (4.0-6.0)
[2021-08-26 14:11] LABS: Alanine Aminotransferase 37 IU/L (<50); Albumin 4.8 g/dL (3.5-5.0); Albumin Globulin Ratio 1.3 (1.0-2.8); Alkaline Phosphatase 75 U/L (38-126); Aspartate Aminotransferase 33 IU/L (17-59); BUN Creatinine Ratio 14.4 (6-22); Bilirubin Total 0.3 mg/dL (0.2-1.3); Blood Urea Nitrogen 13 mg/dL (9-20); Calcium 9.5 mg/dL (8.4-10.2); Carbon Dioxide 32 mmol/L (22-32); Chloride 104 mmol/L (98-107); Estimated Glomerular Filt Rate > 60.0 mL/min (>60); Globulin 3.7 g/dL (1.7-4.1); Glucose 118 mg/dL (70-100); HEMOLYSIS < 15 (0-50); Lactate Dehydrogenase 394 U/L (313-618); Potassium 3.6 mmol/L (3.4-5.1); Sodium 142 mmol/L (137-145); Total Protein 8.5 g/dL (6.3-8.2)
[2021-08-26 19:24] LABS: HCG Quantitative /Beta subunit < 2.4 mIU/mL (<2.40)
== END ==
PROVIDERS: PCP Nurse Practitioner Family; Referring Provider Urology; Visit Provider Urology
DX: R59.0 Localized enlarged lymph nodes (principal); C62.12 Malignant neoplasm of descended left testis; R73.03 Prediabetes
CPT/HCPCS: 36415; 80053; 82105; 83036; 83615; 84702; 85025

== ENCOUNTER → 2022-02-20 10:52 | Outpatient (CLI) | payer BC, SELFPAY ==
--- NOTE | 2022-02-20 10:53 | DI.CT.S_ITS ---
PROCEDURE: CT ABDOMEN PELVIS W CON INDICATIONS: left testicular non-seminoma TECHNIQUE: After the administration of oral and intravenous contrast, axial sections were acquired from the lung bases to the pubic symphysis. Coronal and sagittal reformats were performed. For radiation dose reduction, the following was used: automated exposure control, adjustment of mA and/or kV according to patient size. COMPARISON:[facility], CT, CT CHEST ABD PEL W CON, 08/19/2021, 12:10. FINDINGS: Image quality: Excellent. Lung bases: Unremarkable. Heart: No significant findings. ABDOMEN: Liver: Unremarkable. Gallbladder: Unremarkable. Biliary ducts: Unremarkable. Pancreas: Unremarkable. Spleen: Unremarkable. Adrenal Glands: Unremarkable. Kidneys and Ureters: Unremarkable. Stomach and Bowel: Stomach, small bowel loops, and colon are unremarkable. Peritoneum: No abnormal intraperitoneal fluid. No free air. Ventral Wall: No hernia. Abdominal Nodes: Interval retroperitoneal lymph node resection since the most recent prior study, 1 there was shotty retroperitoneal adenopathy. There are now extensive periaortic and pericaval clips. The presence of new ill-defined soft tissue between the inferior aorta and lowest portion of some of the inferior vena cava, as well as anterior to the left psoas muscle adjacent to the distal aorta, most likely represents postsurgical change and not interval development of ill-defined retroperitoneal adenopathy. Vessels: Aorta and inferior vena cava are normal in size. PELVIS: Pelvic Organs: Unremarkable. Bladder: Unremarkable. Pelvic Nodes: No enlarged lymph nodes. Miscellaneous: No inguinal hernias are seen. Bones: Unremarkable. IMPRESSION: 1. Interval retroperitoneal lymph node resection. There is now ill-defined soft tissue present between the distal aorta and inferior vena cava as well as to the left of the inferior aspect of the aorta, anterior to the left psoas muscle. This is presumed to represent postsurgical change and not recurrent adenopathy. However, would recommend six-month follow-up CT to document stability. 2. Otherwise unremarkable study with no other findings suspicious for malignancy. Comment: Recommend six-month follow-up CT abdomen and pelvis with contrast, as described above. Dictated by: Ceferino Christianson M.D. on 02/20/2022 at 14:29 Approved by: Ceferino Christianson M.D. on 02/20/2022 at 14:37
== END ==
PROVIDERS: PCP Family Medicine; Referring Provider Internal Medicine Hematology & Oncology; Visit Provider Internal Medicine Hematology & Oncology
DX: C62.92 Malignant neoplasm of left testis, unspecified whether descended or undescended (principal)
CPT/HCPCS: 74177; Q9967

== ENCOUNTER → 2022-07-19 06:34 | Outpatient (CLI) | payer BC, SELFPAY ==
--- NOTE | 2022-07-19 06:36 | DI.RAD.S_ITS ---
PROCEDURE: XR CHEST 2V INDICATIONS: testicular cancer TECHNIQUE: 2 views of the chest were acquired. COMPARISON: [facility], CR, XR CHEST 1V, 04/11/2021, 11:10. [facility], CR, XR CHEST 1V, 03/30/2021, 14:48. FINDINGS: Surgical changes and devices: None. Lungs and pleura: Lungs are clear. No pleural effusions or pneumothorax. Mediastinum: Mediastinal contours are normal. Heart size is normal. Bones and chest wall: No suspicious bony abnormalities. Soft tissues appear unremarkable. IMPRESSION: No acute cardiopulmonary abnormality or definite radiographic evidence of thoracic metastatic disease. Dictated by: Gerard Parrish M.D. on 07/19/2022 at 8:32 Approved by: Gerard Parrish M.D. on 07/19/2022 at 8:43
--- NOTE | 2022-07-19 08:04 | DI.CT.S_ITS ---
PROCEDURE: CT ABDOMEN PELVIS W CON INDICATIONS: testicular cancer TECHNIQUE: After the administration of oral and intravenous contrast, axial sections were acquired from the lung bases to the pubic symphysis. Coronal and sagittal reformats were performed. For radiation dose reduction, the following was used: automated exposure control, adjustment of mA and/or kV according to patient size. COMPARISON:[facility], CT, CT CHEST ABD PEL W CON, 08/19/2021, 12:10. [facility], CT, CT ABDOMEN PELVIS W CON, 02/20/2022, 12:28. FINDINGS: Image quality: Adequate Lung bases: No pleural effusion. ABDOMEN: Liver: Unremarkable. Gallbladder: Unremarkable. Biliary ducts: Unremarkable. Pancreas: Unremarkable. Spleen: Unremarkable. Adrenal Glands: Unremarkable. Kidneys and Ureters: No hydronephrosis. Stomach and Bowel: No bowel obstruction. Peritoneum: No abnormal intraperitoneal fluid. No free air. Abdominal Nodes: Retroperitoneal postsurgical changes redemonstrated, probable prior RPLND. Interval decrease in ill-defined retroperitoneal soft tissue, probably evolving postsurgical change. Vessels: Aorta and inferior vena cava are normal in size. PELVIS: Pelvic Organs: Unremarkable CT appearance. Prior left orchiectomy. Bladder: Unremarkable. Pelvic Nodes: No enlarged lymph nodes. Bones: Multilevel degenerative change of the visualized spine. IMPRESSION: Retroperitoneal postsurgical changes present as before. No definitive evidence of metastatic disease identified within the abdomen or pelvis. Dictated by: Gerard Parrish M.D. on 07/19/2022 at 8:46 Approved by: Gerard Parrish M.D. on 07/19/2022 at 9:06
== END ==
PROVIDERS: PCP Family Medicine; Referring Provider Internal Medicine Hematology & Oncology; Visit Provider Internal Medicine Hematology & Oncology
DX: C62.92 Malignant neoplasm of left testis, unspecified whether descended or undescended (principal)
CPT/HCPCS: 71046; 74177; Q9967

== ENCOUNTER → 2024-03-28 09:04 | Outpatient (CLI) | payer BC, SELFPAY ==
[2024-03-28 10:08] LABS: Influenza A - CEPHEID Flu A NEGATIVE (NEGATIVE); Influenza B - CEPHEID Flu B NEGATIVE (NEGATIVE); Respiratory Syncytial Virus Negative (Negative)
[2024-03-28 10:09] LABS: COVID-19 CEPHEID 4-PLEX PCR Negative (Negative)
== END ==
PROVIDERS: PCP Family Medicine; Visit Provider Nurse Practitioner Family
DX: R05.1 Acute cough (principal)
CPT/HCPCS: 0241U